=== PATIENT | female | born 1945 | race Caucasian/White ===

== ENCOUNTER 2016-03-18 09:27 | Inpatient (IN) | payer OTHER ==
[~2016-03-18 09:27] MED LIST: BACITRACIN 50,000 UNITS/10 ML SYR IRR ONE; BUPIVACAINE 0.25% 30 ML SDV ONE; BUPIVACAINE/EPI 0.25% 30 ML SDV ONE; CHLORHEXIDINE GLUC HIBICLENS 118 ML BTL TP ONE; DEXAMETHASONE 10 MG/ML VIAL IV ONE; THROMBIN (RECOMBINANT) 5,000 UNIT VIAL TP ONE; ceFAZolin 2 GM/DEXTROSE 100 ML IV ONE
[2016-03-18] MEDS ORDERED: LIDOCAINE 1% 5 ML SDV ONE (10:10)
[2016-03-18] MEDS ORDERED: LR 1,000 ML IV ONE (10:25)
[2016-03-18] MEDS ORDERED: LIDOCAINE 1% 5 ML SDV ID PRN (10:31)
[2016-03-18] MEDS ORDERED: MIDAZOLAM 2 MG/2 ML VIAL ONE (10:57)
[2016-03-18] MEDS ORDERED: DEXAMETHASONE 10 MG/ML VIAL ONE (10:58)
[2016-03-18] MEDS ORDERED: CITRATE DEXTROSE SOLN 500 ML BAG ONE ×2 (11:07→14:22)
[2016-03-18] MEDS ORDERED: DIAZEPAM 5 MG TAB PO PRN (11:10)
[2016-03-18] MEDS ORDERED: DIAZEPAM 10 MG/2 ML SYR IVP PRN (11:10)
[2016-03-18] MEDS ORDERED: ONDANSETRON DISINTEGRATING 4 MG TAB PO PRN (11:10)
[2016-03-18] MEDS ORDERED: OXYCODONE/APAP 5/325 TAB PO PRN (11:10)
[2016-03-18] MEDS ORDERED: HYDROCODONE/APAP 10/325 TAB PO PRN (11:10)
[2016-03-18] MEDS ORDERED: oxyCODONE IR 5 MG TAB PO PRN (11:10)
[2016-03-18] MEDS ORDERED: diphenhydrAMINE 25 MG CAP PO PRN (11:10)
[2016-03-18] MEDS ORDERED: NALOXONE HCL 0.4 MG/ML INJ IVP PRN (11:10)
[2016-03-18] MEDS ORDERED: LACTULOSE 20 GM/30 ML UDCUP PO PRN (11:10)
[2016-03-18] MEDS ORDERED: HYDROmorphONE/DILAUDID 6 MG/30 ML PCA IV PRN (11:10)
[2016-03-18] MEDS ORDERED: BISACODYL 10 MG SUPP PR PRN (11:10)
[2016-03-18] MEDS ORDERED: HYDROmorphONE/DILAUDID 1 MG/ML SYR IVP PRN (11:10)
[2016-03-18] MEDS ORDERED: ONDANSETRON 4 MG/2 ML VIAL IVP PRN (11:10)
[2016-03-18] MEDS ORDERED: PROPOFOL/EMULSION 500 MG/50 ML BOTTLE IV ONE ×2 (11:11→12:46)
[2016-03-18] MEDS ORDERED: CEFAZOLIN 2 GM/DEXTROSE/100 ML BAG IV ONE (11:11)
[2016-03-18] MEDS ORDERED: fentaNYL 100 MCG/2 ML INJ ONE ×3 (11:11→13:30)
[2016-03-18] MEDS ORDERED: ROCURONIUM 50 MG/5 ML VIAL ONE (11:12)
[2016-03-18] MEDS ORDERED: LIDOCAINE 2% 100 MG/5 ML SYR IVP ONE (11:12)
[2016-03-18] MEDS ORDERED: NS W/ 20 KCl/L 1,000 ML IV SCH (11:15)
[2016-03-18] MEDS ORDERED: POTASSIUM Cl (KCl) 100 ML IV ONE (11:30)
[2016-03-18] MEDS ORDERED: ONDANSETRON 4 MG/2 ML VIAL ONE ×2 (12:18→14:32)
[2016-03-18] MEDS ORDERED: DEXAMETHASONE 4 MG/ML VIAL ONE (12:18)
[2016-03-18] MEDS ORDERED: morphINE PF 5 MG/10 ML INJ ONE (13:30)
[2016-03-18] MEDS ORDERED: ceFAZolin 1 GM VIAL ONE (14:11)
[2016-03-18] MEDS ORDERED: SUGAMMADEX SODIUM 200 MG/2 ML VIAL IVP ONE (14:32)
--- NOTE | 2016-03-18 15:39 | POSTOPPROG ---
Post Op Note Date of Operation: 03/18/16 Surgeon: Gurmeet Uriostegui Ambulatory Services Representative: Brody Anesthesiologist: Chiquita Anesthesia: GET(General Endotracheal) Pre-op Diagnosis: lumbar stenosis/spondylolisthesis Post-op Diagnosis: same Indication: low back pain, left leg pain Procedure: L3/4, L4/5 TLIF Findings: DJD/stenosis Inf/Abcess present in the surg proc area at time of surgery?: No EBL: 100-500 (350 ml EBL) Complications: None Drains: George Simmons (AL x 1, lumbar)
--- NOTE | 2016-03-18 15:41 | SOAPPROG ---
SOAP Progress Note Assessment/Plan: Assessment: 70 yo F sp L3/4, L4/5 TLIF Plan: stable LSO brace when out of bed PT/OT AL to thumbprint suction only please call with neuro changes pt seen by DR Pate in pacu 03/18/16 15:40 Subjective: + back pain, no leg pain Objective: somnolent PERRL, no facial droop ELMA x 4 + light touch ICD10 Worksheet Patient Problems: Problems Problem Status Diagnosed Fusion of lumbar spine Acute - ICD10 Problem Qualifiers (1) Fusion of lumbar spine
--- NOTE | 2016-03-18 15:53 | DX ---
Fluoroscopy Provided for Lumbar Spine Surgery March 18, 2016 Indication: Lumbar spine surgery. Technique: 42.6 seconds of fluoroscopy time were utilized. Cumulative dose: 12.55 mGy. Comparison: Lumbar spine series dated February 12, 2016. Findings: A three-level posterior fusion unilateral construct has been placed, and two interspinous f ixer devices are present. Impression: Three-level unilateral posterior lumbar spine fusion.
[2016-03-18] MEDS ORDERED: morphINE PF 5 MG/10 ML INJ IT ONE (16:00)
[2016-03-18] MEDS ORDERED: fentaNYL 100 MCG/2 ML INJ IT ONE (16:00)
[2016-03-18 16:22] LABS: HEMOGLOBIN 7.8 g/dL (12.6-16.3); MEAN CELL HEMOGLOBIN 22.5 pg (27.9-34.1); MEAN CELL HEMOGLOBIN CONCENTR. 31.2 g/dL (32.4-36.7); MEAN CELL VOLUME 72.3 fL (81.5-99.8); RED BLOOD CELL COUNT 3.46 10^6/uL (4.18-5.33); RED CELL DISTRIBUTION WIDTH 16.8 % (11.5-15.2)
[2016-03-18 16:35] LABS: ANION GAP 7 mEq/L (8-16); CALCIUM 8.1 mg/dL (8.5-10.4); CARBON DIOXIDE 26 mEq/l (22-31); CHLORIDE 103 mEq/L (97-110); CREATININE 0.5 mg/dL (0.6-1.0); GLOMERULAR FILTRATION RATE > 60; GLUCOSE 149 mg/dL (70-100); POTASSIUM 4.2 mEq/L (3.5-5.2); SODIUM 136 mEq/L (134-144)
[2016-03-18] MEDS: POLYETHYLENE GLYCOL 3350 17 GM PKT PO SCH ×2 (17:00→20:30)
--- NOTE | 2016-03-18 17:39 | GOP ---
[f rep st] OPERATIVE REPORT DATE OF OPERATION: 03/18/2016 SURGEON: Gurmeet Uriostegui MD TAKER DOWN: [facility]. ANESTHESIA: General endotracheal. PREOPERATIVE DIAGNOSIS: Critical spinal stenosis at L3-4 and L4-5 with spondylolisthesis and instability. Intractable back pain and left greater than right lower extremity radicular pain. Intractable neurogenic claudication. High risk surgical candidate given age, comorbidities, and required surgical intervention. POSTOPERATIVE DIAGNOSIS: Critical spinal stenosis at L3-4 and L4-5 with spondylolisthesis and instability. Intractable back pain and left greater than right lower extremity radicular pain. Intractable neurogenic claudication. High risk surgical candidate given age, comorbidities, and required surgical intervention. PROCEDURE PERFORMED: Mini open exposure for left-sided L3-4 and L4-5 far lateral transfacet transpedicular decompression with L3 through 5 posterior segmental (pedicle screw and Axle device) fixation and posterolateral fusion with local autograft and bone morphogenic protein. Use of intraoperative microscopy fluoroscopy and computer volumetric stereotactic navigation with intraoperative neurophysiologic testing. Injection of intrathecal narcotic analgesics and subcutaneous and intramuscular local anesthesia for postoperative pain control. FINDINGS: ESTIMATED BLOOD LOSS: 500 cc. COMPLICATIONS: None. INDICATIONS FOR PROCEDURE: The patient is a 70-year-old woman with intractable low back pain and left greater than right lower extremity radicular and neurogenic claudication symptoms. She has critical spinal stenosis and spondylolisthesis with instability at the L3-4 and L4-5 levels and has failed extensive conservative care. She presents today for surgical decompression and stabilization through a mini open approach. DESCRIPTION OF PROCEDURE: After informed consent was obtained, the patient was taken to the operating room and placed in the prone position on the George table. The lumbosacral area was prepped and draped in a sterile fashion. After fluoroscopic localization of the correct levels, the subcutaneous and intramuscular tissues were infiltrated with local anesthesia. A midline linear incision was then created over the L3 through 5 spinous processes. This was carried down to the fascial layer, which was incised using the monopolar electrocautery, creating a subperiosteal plane along the spinous processes and laminae bilaterally. Intraoperative fluoroscopy was again utilized to verify the correct levels. Following this, the dissection was carried out over the facet joints, and the microscope was brought in. A left- sided far lateral transfacet transpedicular decompression was then performed at the L3-4 and L4-5 levels with complete unroofing of the facet joints and neural foramina at L3, L4, and L5. In addition, an aggressive central canal decompression was performed with angling the microscope across the midline with a right-sided decompression as well, but preserving the lamina and facet joints as much as possible by undercutting from the left side. Following an excellent decompression at both levels, the [employer] neuronavigational system was brought in, and using computer volumetric stereotactic navigation, pedicle screws, were placed on the left at the L3, L4, and L5 levels. Each individual screw was tested neurophysiologically with monopolar electrostimulation and interpretation of the potentials by the surgeon. A bebo was then placed and secured first at L4-5, then at L3-4 under distraction, during which time complete diskectomies were performed with preparation of the endplates and placement of 2 structural PEEK interbody spacers, local autograft, and bone morphogenic protein at each level for L3-4 and L4-5 posterior/transforaminal lumbar interbody fusions. The screw and bebo system was then placed in a slight amount of compression in order to facilitate bony union and to minimize the potential for posterior graft migration. The screw and bebo system was then placed in a slight amount of compression in order to facilitate bony union and to minimize the potential for posterior graft migration. Axle devices were then placed at the inner spinous process levels in order to avoid pedicle screws on the right side in order to maximize the bony surface area for the posterolateral fusion and minimize the potential risks associated with the pedicle screws on that side. Following this, the wound was copiously irrigated with antibiotic irrigation, and meticulous hemostasis was achieved. The remaining laminae and facet joints on the right side were then extensively decorticated, and the residual local autograft along with bone morphogenic protein and some morselized allograft was placed out laterally for a posterolateral fusion from L3 through L5. Duramorph 200 mcg, along with 50 mcg of fentanyl were then injected intrathecally at the L2-3 level. The subcutaneous and intramuscular tissues were re-infiltrated with local anesthesia. A drain was placed, and the wound was closed in a layered fashion using interrupted Vicryl sutures followed by Steri-Strips on the skin. DISPOSITION: The patient was extubated and transferred to the recovery room in stable condition. /[id number]/MODL MTDD
[2016-03-18] MEDS: CREON 24 CAP PO SCH ×2 (18:10→19:15)
[2016-03-18] MEDS: morphINE SR 15 MG TAB PO SCH (20:28)
[2016-03-18] MEDS: SENNOSIDES/DOCUSATE SODIUM TAB PO SCH (20:29)
[2016-03-18] MEDS: FAMOTIDINE 20 MG TAB PO SCH (20:29)
[2016-03-18] MEDS: METOPROLOL TARTRATE 25 MG TAB PO SCH (20:29)
[2016-03-18] MEDS ORDERED: FAMOTIDINE 20 MG/NACL 50 ML IV SCH (21:00)
[2016-03-18] MEDS ORDERED: morphINE SR 15 MG TAB PO SCH (21:00)
[2016-03-19 05:01] LABS: % IMMATURE GRANULYOCYTES 0.5 % (0.0-1.1); ABSOLUTE IMMATURE GRANULOCYTES 0.06 10^3/uL (0.00-0.10); ADD DIFF? NO; ADD MORPH? YES; ADD SCAN? NO; ATYPICAL LYMPHOCYTE FLAG 20 (0-99); FRAGMENT RBC FLAG 20 (0-99); HEMATOCRIT 21.2 % (38.0-47.0); LEFT SHIFT FLG 10 (0-99); LIPEMIA HEMOLYSIS FLAG 80 (0-99); MEAN CELL HEMOGLOBIN CONCENTR. 31.1 g/dL (32.4-36.7); MEAN CELL VOLUME 73.9 fL (81.5-99.8); MEAN PLATELET VOLUME 10.8 fL (8.7-11.7); PLATELET CLUMPS FLAG 20 (0-99); PLATELET COUNT 209 10^3/uL (150-400); RED BLOOD CELL COUNT 2.87 10^6/uL (4.18-5.33); RED CELL DISTRIBUTION WIDTH 16.7 % (11.5-15.2)
[2016-03-19 05:12] LABS: HEMOGLOBIN 6.6 g/dL (12.6-16.3)
[2016-03-19 05:38] LABS: ANION GAP 6 mEq/L (8-16); CARBON DIOXIDE 26 mEq/l (22-31); CHLORIDE 104 mEq/L (97-110); CREATININE 0.5 mg/dL (0.6-1.0); GLOMERULAR FILTRATION RATE > 60; GLUCOSE 146 mg/dL (70-100); POTASSIUM 4.4 mEq/L (3.5-5.2); SODIUM 136 mEq/L (134-144)
[2016-03-19 06:23] LABS: ACANTHOCYTES 1+; ELLIPTOCYTES 1+; HYPOCHROMIA 1+; PLATELET ESTIMATE ADEQUATE (ADEQ); POLYCHROMASIA 1+
[2016-03-19 06:24] LABS: MICROCYTES 1+
[2016-03-19] MEDS: FAMOTIDINE 20 MG TAB PO SCH ×2 (08:04→20:28)
[2016-03-19] MEDS: morphINE SR 15 MG TAB PO SCH ×2 (08:04→20:29)
[2016-03-19] MEDS: PANTOPRAZOLE SODIUM 40 MG TAB PO SCH (08:04)
[2016-03-19] MEDS: CHOLECALCIFEROL VIT D3 2,000 UNITS TAB/CAP PO SCH (08:04)
[2016-03-19] MEDS: SENNOSIDES/DOCUSATE SODIUM TAB PO SCH ×2 (08:04→20:28)
[2016-03-19] MEDS: CREON 24 CAP PO SCH ×3 (08:07→18:22)
[2016-03-19] MEDS: POLYETHYLENE GLYCOL 3350 17 GM PKT PO SCH ×3 (08:11→20:27)
--- NOTE | 2016-03-19 09:10 | NEUSURGPN ---
Date of Surgery: 03/18/16 Post Op Day: 1 Assessment/Plan: Awake, alert. Pain well controlled H/H low. Dr. Pate aware and we will transfuse 3 units PRBC today. Hold morning dose of Metoprolol due to low BP. Advance activity with PT/OT. LSO when out of bed Continue AL drain Rehab planning Needs lumbar xrays today. Will consult hospitalist to follow along. Subjective: awake, comfortable. "I have no pain" denies numbness or tingling. Objective: Neuro: LICONA, Sens +LT Dressing CDI Neurosurgery Physical Exam - Vitals, I&O, Labs I and O 03/18/16 03/19/16 03/20/16 05:59 05:59 05:59 Intake Total 4020 Output Total 703 Balance 3317 Weight 39.916 kg Intake: Oral (ml) 20 IV Intake (ml) 3000 IV Infused (ml) 1000 ceFAZolin 1 GM/DEXTROSE 100 50 ml @ 200 mls/hr IV Q8H [facility] Rx#:[id number] NS W/ 20 KCl/L 1,000 ml @ 900 75 mls/hr IV CONT [facility] Rx #:[id number] Output: Urine (ml) 250 Bedside Commode 250 Estimated Blood Loss (ml) 350 Wound Drainage (ml) 103 Back George Simmons 103 Other: Number of Voids Bedside Commode 1 Vital Signs Temp Pulse Resp BP Pulse Ox 36.6 C 63 16 113/66 100 03/19/16 04:25 03/19/16 04:25 03/19/16 04:25 03/19/16 04:25 03/19/16 04:25 Laboratory Results 03/19/16 04:20 03/19/16 04:20 ICD10 Worksheet Patient Problems: Problems Problem Status Diagnosed Fusion of lumbar spine Acute
[2016-03-19] MEDS: METOPROLOL TARTRATE 25 MG TAB PO SCH ×2 (10:54→20:29)
[2016-03-19 16:48] LABS: TOTAL IRON BINDING CAPACITY 290 ug/dL (260-490)
[2016-03-19 17:35] LABS: IRON < 10.1 mcg/dL (37-170)
[2016-03-19 17:36] LABS: % SATURATION 4 % (20-55)
[2016-03-19 19:01] LABS: % IMMATURE GRANULYOCYTES 0.4 % (0.0-1.1); ABSOLUTE IMMATURE GRANULOCYTES 0.04 10^3/uL (0.00-0.10); ADD DIFF? NO; ADD MORPH? NO; ADD SCAN? NO; ATYPICAL LYMPHOCYTE FLAG 10 (0-99); FRAGMENT RBC FLAG 20 (0-99); HEMATOCRIT 30.5 % (38.0-47.0); HEMOGLOBIN 9.9 g/dL (12.6-16.3); LEFT SHIFT FLG 0 (0-99); LIPEMIA HEMOLYSIS FLAG 80 (0-99); MEAN CELL HEMOGLOBIN CONCENTR. 32.5 g/dL (32.4-36.7); MEAN PLATELET VOLUME 9.7 fL (8.7-11.7); PLATELET CLUMPS FLAG 10 (0-99); PLATELET COUNT 212 10^3/uL (150-400); RED BLOOD CELL COUNT 3.96 10^6/uL (4.18-5.33); RED CELL DISTRIBUTION WIDTH 17.3 % (11.5-15.2)
[2016-03-19] MEDS: METHOCARBAMOL 750 MG TAB PO PRN (20:29)
--- NOTE | 2016-03-19 20:33 | GCON ---
[f rep ] CONSULTATION [facility] MEDICINE CONSULTATION. DATE OF CONSULTATION: 03/19/2016 REASON FOR CONSULTATION: I was asked by Dr. Uriostegui to see the patient in regard to her medica l problems, including anemia and history of ampullary cancer. HISTORY OF PRESENT ILLNESS: This is a 70-year-old female, who is now postoperative day #1 status pos t status post L3-4, L4-5 TLIF for degenerative disease and spinal stenosis. She is recovering well, has no chest pain, shortness of breath. She does have some ongoing left lower extremity numbness and weakness which she believes is actually improving after the surgery. She is being transfused 2 units of packed red blood cells today. Her hemoglobin postoperatively was 7.8, down to 6.6 today. I note that on March 05, through a review of her old records, she had h emoglobin of 11.7. This had decreased to 10.7 about a week after that. She denies any melena, hemat ochezia. No other sources of blood loss are noted. She notes that she has been eating poorly. She has never been told that she is anemic before. Her history is most notable for having what sounds like cholangiocarcinoma status post Whipple proced ure on October 05 of this year. She did not receive any subsequent chemotherapy. She notes that she had some liver involvement, as well as lymph node involvement, which were resected at the time of . She tells me that a subsequent PET scan showed no evidence of ongoing disease. She follows [facility] Dr. Clark in [place], as well as an oncologist at [facility]. The Whipple was done at [facility]. PAST MEDICAL/SURGICAL HISTORY: 1. Cholangiocarcinoma status post Whipple. 2. 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 3. History of paroxysmal atrial fibrillation, not anticoagulated, currently on metoprolol. 4. History of a hysterectomy, tonsillectomy and orthopedic procedures in the past. MEDICATIONS: Please see medication reconciliation. FAMILY HISTORY: Her father and brother both smoke significantly. Both in their 60s of what tram nds like metastatic cancer. Her mother is 96 years old and healthy. SOCIAL HISTORY: She lives in [place]. She does not drink or smoke. 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 She swears like a silk opener. REVIEW OF SYSTEMS: A 10-point review of systems is conducted and is negative, except per HPI. PHYSICAL EXAM: VITAL SIGNS: Blood pressure 104/65, heart rate 71, respiration rate 16, saturating 9 8% on 2 L, temperature is 36.7. GENERAL: The patient is a very pleasant female, fully oriented, in no acute distress. HEENT: Pupils equal, round, reactive. Head is normocephalic, atraumatic. CARDI OVASCULAR: Exam shows a regular rate and rhythm. She has a split S2. She has no murmurs, rubs or g allops. PULMONARY: Exam shows lungs clear to auscultation bilaterally. She is in no respiratory di stress. ABDOMEN: Soft. She is mildly distended. She has no real tenderness to palpation. Normal bowel sounds. No hepatosplenomegaly appreciated. SKIN: Exam shows no rash. : Exam shows no Fol ey. NEUROLOGIC: Exam shows her to be alert and oriented x3. She has a mild decrease in left foot d orsiflexion. She has mild numbness in her left foot. Otherwise, neurologic exam is normal. PSYCHIA TRIC: Exam shows a normal mood and affect. LABS: Basic metabolic panel is normal. Her hemoglobin was 7.8 yesterday, down to 6.6 today, her [facility] te cell count is 11.7, her MCV is 73.9, platelets are 209. DATA: 1. I reviewed her chart. 2. I reviewed her operative note. 3. I reviewed her outside records. 4. I reviewed fluoroscopy which shows a three-level, unilateral, posterior lumbar spinal fusion. IMPRESSION AND PLAN: 1. Anemia, suspect ajylp-va-dreschn: It appears as though her hemoglobin had been dropping over the past few weeks prior to surgery. I have ordered iron studies given her low MCV. Also, will check r eticulocyte count, as well as a B12. She is being transfused right now. Will recheck a hemoglobin i n the morning. 2. Cholangiocarcinoma status post Whipple: She is currently taking Creon for presumed pancreatic in sufficiency. Will continue this for now. She will follow up with Dr. Clark, as well as her oncolog ist at the [facility]. 3. History of paroxysmal atrial fibrillation: She is currently on metoprolol, has had no recurrence s since then. Will continue this for now, although it is being held in the setting of hypotension. I do not think she needs any further evaluation for this at this point. 4. Mild leukocytosis: Suspect stress in the setting of her surgery. Rechecking a CBC tomorrow. 5. Will check fecal occult blood test while she is here if she has a bowel movement to further evalu ate her anemia. 6. Spinal fusion: Neurologic deficits have improved since the surgery. We will defer care to Neuro surgery. It looks as though they would like to start Lovenox on the 21 of March. Thank you for allowing Hospital Medicine to participate in the care your patient. We will continue t o follow with you this. /[id number]/MODL
[2016-03-20] MEDS: ACETAMINOPHEN 325 MG TAB PO PRN ×2 (02:13→20:04)
[2016-03-20 05:40] LABS: ALBUMIN 2.4 g/dL (3.5-5.0); BILIRUBIN,TOTAL 0.5 mg/dL (0.1-1.4); BILIRUBIN-CONJUGATED 0.2 mg/dL (0.0-0.5); BILIRUBIN-UNCONJUGATED 0.3 mg/dL (0.0-1.1); TOTAL PROTEIN 4.9 g/dL (6.3-8.2)
[2016-03-20] MEDS: morphINE SR 15 MG TAB PO SCH ×2 (08:21→20:39)
[2016-03-20] MEDS: FAMOTIDINE 20 MG TAB PO SCH ×2 (08:21→20:04)
[2016-03-20] MEDS: PANTOPRAZOLE SODIUM 40 MG TAB PO SCH (08:22)
[2016-03-20] MEDS: CHOLECALCIFEROL VIT D3 2,000 UNITS TAB/CAP PO SCH (08:22)
[2016-03-20] MEDS: METOPROLOL TARTRATE 25 MG TAB PO SCH ×2 (08:22→20:03)
[2016-03-20] MEDS: CREON 24 CAP PO SCH ×3 (08:23→18:32)
--- NOTE | 2016-03-20 08:24 | NEUSURGPN ---
Date of Surgery: 03/18/16 Post Op Day: 2 Assessment/Plan: Assessment: 70 yo female that is s/p TLIF L3-L5 POD #2 Plan: -awake, alert. Pain well controlled with Tylenol and MS Contin -H/H low. Dr. Pate aware and we transfused [address] Pate -IM on board to help with medical management of BP, medical issues -Advance activity with PT/OT. LSO when out of bed-brace fitting well -Continue AL drain -Rehab planning with potential dc Tuesday at the earliest -Needs lumbar xrays today-pending -call with any questions or concerns -d/w Dr Pate Subjective: Awake and alert. Pt with back pain that is expected. No n/v/d. No lou/neck/ chest complaints. Objective: AAO x 3, PERRLA/EOMI no droop CN 2-12 grossly intact +lt touch LICONA, Sens +LT Dressing CDI AL in place Neuro Check Frequency: per routine Urinary Catheter in Place: No - Physician Discussed Patient with DrNikko: [facility] Physical Exam - Vitals, I&O, Labs I and O 03/19/16 03/20/16 03/21/16 05:59 05:59 05:59 Intake Total 4020 700 Output Total 703 400 240 Balance 3317 300 -240 Weight 39.916 kg Intake: Oral (ml) 20 700 IV Intake (ml) 3000 IV Infused (ml) 1000 ceFAZolin 1 GM/DEXTROSE 100 50 ml @ 200 mls/hr IV Q8H [facility] Rx#:[id number] NS W/ 20 KCl/L 1,000 ml @ 900 75 mls/hr IV CONT [facility] Rx #:[id number] Output: Urine (ml) 250 300 200 Bedside Commode 250 Toilet 300 200 Estimated Blood Loss (ml) 350 Wound Drainage (ml) 103 100 40 Back George Simmons 103 100 40 Other: Number of Voids Bedside Commode 1 Vital Signs Temp Pulse Resp BP Pulse Ox 37.1 C 76 16 133/73 H 97 03/20/16 03:22 03/20/16 03:22 03/20/16 03:22 03/20/16 03:22 03/20/16 03:22 Laboratory Results 03/19/16 18:55 03/19/16 04:20 ICD10 Worksheet Patient Problems: Problems Problem Status Diagnosed Fusion of lumbar spine Acute
[2016-03-20] MEDS: POLYETHYLENE GLYCOL 3350 17 GM PKT PO SCH ×3 (08:27→19:27)
[2016-03-20] MEDS: SENNOSIDES/DOCUSATE SODIUM TAB PO SCH ×2 (08:27→20:03)
--- NOTE | 2016-03-20 09:53 | HOSPPROG ---
Hospitalist Progress Note Assessment/Plan: ASSESSMENT/PLAN: # anemia - chronic component in the setting of acute blood loss from surgery: FOBT pending - IV iron while here, p.o. iron on discharge # status post lumbar fusion, POD#2 # hypertension, reasonable control, continue metoprolol # history of cholangiocarcinoma status post Whipple 5 months ago - still having ongoing issues with GI transit - continue Creon for now # FCFT # dvt ppx per nsg SUBJECTIVE: Had some abdominal cramping last night as well as abdominal pain; still passing flatus; no bowel movement OBJECTIVE: Vitals reviewed Comfortable, no acute distress Regular rate and rhythm, no murmurs rubs or gallops No respiratory distress, lungs clear to auscultation bilaterally; no wheezes rales or rhonchi Abdomen with normal bowel sounds, somewhat firm, not terribly distended, moderately tender to palpation LABORATORY DATA: Iron very low; hemoglobin better IMAGING: Nothing new MICROBIOLOGY: None Objective: Vital Signs Temp Pulse Resp BP Pulse Ox 36.8 C 78 16 141/87 H 96 03/20/16 08:00 03/20/16 08:22 03/20/16 08:00 03/20/16 08:22 03/20/16 08:00 Laboratory Results 03/19/16 18:55 03/19/16 04:20 03/19/16 03/20/16 03/21/16 05:59 05:59 05:59 Intake Total 4020 700 Output Total 703 400 240 Balance 3317 300 -240 ICD10 Worksheet Patient Problems: Problems Problem Status Diagnosed Fusion of lumbar spine Acute
[2016-03-20] MEDS: SODIUM FERRIC GLUCONAT/SUCROSE 125 MG in NS 100 ML IV SCH (10:49)
--- NOTE | 2016-03-20 16:20 | DX ---
Lumbar Spine, Two Views March 20, 2016 Indication: New lumbar spine fusion. Comparison: Lumbar spine series dated February 12, 2016. Technique: Upright AP and lateral views. Findings: A new left unilateral posterior fusion construct extends from L3 to L5. The construct consi sts of a vertical bebo, pedicle screws at L3, L4, and L5, radiopaque bone graft and markers in the L3- L4 and L4-L5 interbody spaces, and interspinous fixator devices at the L3-L4 and L4-L5 levels. The de gree of spondylolisthesis has significantly improved. The L3 and L4 vertebral bodies are now anatomic ally aligned. L4 is now anterolisthesed 4 mm on L5 (previously 8 mm). No perihardware fracture or billie ency. Mild levocurvature is improved. A surgical drain is present posteriorly. A brace obscures fine bony detail on the AP view. Impression: New well-seated left unilateral posterior fusion construct extending from L3 to L5.
[2016-03-20] MEDS: MAGNESIUM HYDROXIDE 30 ML UDCUP PO PRN (17:16)
[2016-03-20] MEDS: METHOCARBAMOL 750 MG TAB PO PRN (20:03)
[2016-03-21 04:48] LABS: % IMMATURE GRANULYOCYTES 0.3 % (0.0-1.1); ABSOLUTE IMMATURE GRANULOCYTES 0.03 10^3/uL (0.00-0.10); ADD DIFF? NO; ADD MORPH? NO; ADD SCAN? NO; ATYPICAL LYMPHOCYTE FLAG 20 (0-99); FRAGMENT RBC FLAG 20 (0-99); HEMATOCRIT 26.2 % (38.0-47.0); HEMOGLOBIN 8.5 g/dL (12.6-16.3); LEFT SHIFT FLG 0 (0-99); LIPEMIA HEMOLYSIS FLAG 80 (0-99); MEAN CELL HEMOGLOBIN 25.1 pg (27.9-34.1); MEAN CELL HEMOGLOBIN CONCENTR. 32.4 g/dL (32.4-36.7); MEAN CELL VOLUME 77.5 fL (81.5-99.8); MEAN PLATELET VOLUME 10.3 fL (8.7-11.7); PLATELET CLUMPS FLAG 0 (0-99); PLATELET COUNT 160 10^3/uL (150-400); RED BLOOD CELL COUNT 3.38 10^6/uL (4.18-5.33); RED CELL DISTRIBUTION WIDTH 17.9 % (11.5-15.2)
[2016-03-21] MEDS: ACETAMINOPHEN 325 MG TAB PO PRN ×4 (05:24→23:44)
[2016-03-21] MEDS: METHOCARBAMOL 750 MG TAB PO PRN ×4 (05:24→23:44)
[2016-03-21] MEDS: SODIUM FERRIC GLUCONAT/SUCROSE 125 MG in NS 100 ML IV SCH (08:04)
[2016-03-21] MEDS: METOPROLOL TARTRATE 25 MG TAB PO SCH ×2 (08:05→21:11)
[2016-03-21] MEDS: PANTOPRAZOLE SODIUM 40 MG TAB PO SCH (08:05)
[2016-03-21] MEDS: CREON 24 CAP PO SCH ×3 (08:05→17:28)
[2016-03-21] MEDS: FAMOTIDINE 20 MG TAB PO SCH ×2 (08:05→21:10)
[2016-03-21] MEDS: SENNOSIDES/DOCUSATE SODIUM TAB PO SCH ×2 (08:05→21:10)
[2016-03-21] MEDS: ENOXAPARIN 40 MG/0.4 ML SYR SC SCH (08:05)
[2016-03-21] MEDS: CHOLECALCIFEROL VIT D3 2,000 UNITS TAB/CAP PO SCH (08:05)
[2016-03-21] MEDS: morphINE SR 15 MG TAB PO SCH ×2 (08:10→21:11)
[2016-03-21] MEDS: POLYETHYLENE GLYCOL 3350 17 GM PKT PO SCH ×3 (08:10→21:11)
--- NOTE | 2016-03-21 09:05 | NEUSURGPN ---
Date of Surgery: 03/18/16 Post Op Day: 3 Assessment/Plan: Assessment: 70 yo female that is s/p TLIF L3-L5 POD #3 Plan: -awake, alert. Pain well controlled with Tylenol and Robaxin only -H/H low but stable. Dr. Pate aware and we transfused 3 units. IM to start IV iron replacement -IM on board to help with medical management of BP/medical issues-appreciate their care and input -Advance activity with PT/OT. LSO when out of bed-brace fitting well-no skin issues -Continue AL drain til tomorrow per Dr Pate -Rehab planning with potential dc Tuesday at the earliest -Post op xrays look good-reviewed with Dr Pate -call with any questions or concerns -d/w Dr Pate Subjective: Doing well this am. No new complaints or concerns. No f/c/n/v/d. No lou/neck/ chest/abd or gu complaints. Objective: AAO x 3, PERRLA/EOMI no droop CN 2-12 grossly intact +lt touch LICONA, Sens +LT Dressing CDI AL in place Neuro Check Frequency: per routine Urinary Catheter in Place: No - Physician Discussed Patient with : [facility] Physical Exam - Vitals, I&O, Labs I and O 03/20/16 03/21/16 03/22/16 05:59 05:59 05:59 Intake Total 700 1000 Output Total 400 1800 Balance 300 -800 Intake: Oral (ml) 700 1000 Output: Urine (ml) 300 1650 Toilet 300 1650 Wound Drainage (ml) 100 150 Back George Simmons 100 150 Other: Number of Voids Toilet 1 Number of Stools Toilet 1 Vital Signs Temp Pulse Resp BP Pulse Ox 36.7 C 66 16 132/71 H 93 03/21/16 07:42 03/21/16 08:05 03/21/16 07:42 03/21/16 08:05 03/21/16 07:42 Laboratory Results 03/21/16 04:36 03/19/16 04:20 ICD10 Worksheet Patient Problems: Problems Problem Status Diagnosed Fusion of lumbar spine Acute
--- NOTE | 2016-03-21 09:22 | HOSPPROG ---
Hospitalist Progress Note Assessment/Plan: ASSESSMENT/PLAN: # anemia, Fe deficient - chronic component in the setting of acute blood loss from surgery: FOBT neg x 1 - IV iron while here, p.o. iron on discharge - recheck tomorrow - needs outpatient f/u to consider EGD/colonoscopy # status post lumbar fusion, POD#3 # hypertension, reasonable control, continue metoprolol # history of cholangiocarcinoma status post Whipple 5 months ago - still having ongoing issues with GI transit - may contribute to poor Fe absorption - continue Creon for now # FCFT # dvt ppx per nsg - starting today SUBJECTIVE: Abdominal pain much better today OBJECTIVE: Vitals reviewed Comfortable, no acute distress Regular rate and rhythm, no murmurs rubs or gallops No respiratory distress, lungs clear to auscultation bilaterally; no wheezes rales or rhonchi Abdomen with normal bowel sounds, somewhat firm, not terribly distended, moderately tender to palpation LABORATORY DATA: Hemoglobin slightly lower IMAGING: Nothing new MICROBIOLOGY: None Objective: Vital Signs Temp Pulse Resp BP Pulse Ox 36.7 C 66 16 132/71 H 93 03/21/16 07:42 03/21/16 08:05 03/21/16 07:42 03/21/16 08:05 03/21/16 07:42 Laboratory Results 03/21/16 04:36 03/19/16 04:20 03/20/16 03/21/16 03/22/16 05:59 05:59 05:59 Intake Total 700 1000 Output Total 400 1800 Balance 300 -800 ICD10 Worksheet Patient Problems: Problems Problem Status Diagnosed Fusion of lumbar spine Acute
[2016-03-21] MEDS: MAGNESIUM HYDROXIDE 30 ML UDCUP PO PRN (17:57)
[2016-03-22 05:16] LABS: % IMMATURE GRANULYOCYTES 0.6 % (0.0-1.1); ABSOLUTE IMMATURE GRANULOCYTES 0.05 10^3/uL (0.00-0.10); ADD DIFF? NO; ADD MORPH? NO; ADD SCAN? NO; ATYPICAL LYMPHOCYTE FLAG 10 (0-99); FRAGMENT RBC FLAG 20 (0-99); HEMATOCRIT 28.5 % (38.0-47.0); HEMOGLOBIN 9.2 g/dL (12.6-16.3); LEFT SHIFT FLG 0 (0-99); LIPEMIA HEMOLYSIS FLAG 80 (0-99); MEAN CELL HEMOGLOBIN 24.9 pg (27.9-34.1); MEAN CELL HEMOGLOBIN CONCENTR. 32.3 g/dL (32.4-36.7); MEAN PLATELET VOLUME 10.4 fL (8.7-11.7); PLATELET CLUMPS FLAG 10 (0-99); PLATELET COUNT 227 10^3/uL (150-400); RED CELL DISTRIBUTION WIDTH 18.5 % (11.5-15.2)
[2016-03-22] MEDS: ACETAMINOPHEN 325 MG TAB PO PRN ×3 (06:13→16:11)
[2016-03-22] MEDS: METHOCARBAMOL 750 MG TAB PO PRN ×2 (06:13→13:00)
[2016-03-22 07:40] VITALS: TEMP 98.1
--- NOTE | 2016-03-22 08:13 | NEUSURGPN ---
Date of Surgery: 03/18/16 Post Op Day: 4 Assessment/Plan: Assessment: 70 yo female that is s/p TLIF L3-L5 POD #4 Plan: -awake, alert. Pain well controlled with Tylenol and Robaxin only -H/H low slightly improved. Dr. Pate aware and we transfused PRBCs. IM to start IV iron replacement -IM on board to help with medical management of BP/medical issues-appreciate their care and input -Advance activity with PT/OT. LSO when out of bed-brace fitting well-no skin issues -AL removed today by myself and dressing changed-ok per Dr Pate -Rehab planning with potential dc today at the earliest -Post op xrays look good-reviewed with Dr Pate -call with any questions or concerns -d/w Dr Pate Subjective: Awake and alert, NAD. Pt eating/drinking and voiding. No f/c/n/v/d. Objective: AAO x 3, PERRLA/EOMI no droop CN 2-12 grossly intact +lt touch LICONA, Sens +LT Dressing CDI AL intact by myself Neuro Check Frequency: per routine Urinary Catheter in Place: No - Physician Discussed Patient with : [facility] Physical Exam - Vitals, I&O, Labs I and O 03/21/16 03/22/16 03/23/16 05:59 05:59 05:59 Intake Total 1000 2090 Output Total 1800 2430 200 Balance -800 -340 -200 Intake: Oral (ml) 1000 1660 IV Infused (ml) 430 Sodium Ferric Gluconat/ 430 Sucrose 125 mg In Ns 100 ml @ 110 mls/hr IV DAILY [facility] Rx#:[id number] Output: Urine (ml) 1650 2350 200 Bedside Commode 650 Toilet 1650 1700 200 Wound Drainage (ml) 150 80 Back George Simmons 150 80 Other: Number of Voids Toilet 1 3 1 Number of Stools Toilet 1 Vital Signs Temp Pulse Resp BP Pulse Ox 36.7 C 82 17 177/96 H 95 03/22/16 07:39 03/22/16 07:39 03/22/16 07:39 03/22/16 07:39 03/22/16 07:39 Laboratory Results 03/22/16 05:00 03/19/16 04:20 ICD10 Worksheet Patient Problems: Problems Problem Status Diagnosed Fusion of lumbar spine Acute
[2016-03-22] MEDS: CREON 24 CAP PO SCH ×2 (09:53→12:59)
[2016-03-22] MEDS: SENNOSIDES/DOCUSATE SODIUM TAB PO SCH (09:54)
[2016-03-22] MEDS: PANTOPRAZOLE SODIUM 40 MG TAB PO SCH (09:55)
[2016-03-22] MEDS: CHOLECALCIFEROL VIT D3 2,000 UNITS TAB/CAP PO SCH (09:55)
[2016-03-22] MEDS: METOPROLOL TARTRATE 25 MG TAB PO SCH (09:55)
[2016-03-22] MEDS: POLYETHYLENE GLYCOL 3350 17 GM PKT PO SCH ×2 (09:55→15:44)
[2016-03-22] MEDS: morphINE SR 15 MG TAB PO SCH (09:55)
[2016-03-22] MEDS: ENOXAPARIN 40 MG/0.4 ML SYR SC SCH (09:55)
[2016-03-22] MEDS: FAMOTIDINE 20 MG TAB PO SCH (09:55)
[2016-03-22] MEDS: SODIUM FERRIC GLUCONAT/SUCROSE 125 MG in NS 100 ML IV SCH (10:59)
[2016-03-22 13:05] VITALS: BP 170/92
--- NOTE | 2016-03-22 15:27 | HOSPPROG ---
Hospitalist Progress Note Assessment/Plan: #Iron def anemia -IV iron here and discharged on PO #Benign HTN -mildly elevated today. She was very anxious about abdomen #Abd distension -this has been ongoing since her Whipple. Abd soft, min distension on exam. Having BMs -I advised her to FU with her surgeon at [facility]; she has appt in May or she can call to get in sooner #s/p TLIF L3-5 -brace when out of bed #h/o cholangiocarcinoma -s/p Whipple. FU with [facility] team Please call if any questions. Thank you Subjective: she is very concerned about distension in her abd since her whipple. Wants something to be done Objective: Vital Signs Temp Pulse Resp BP Pulse Ox 36.7 C 80 17 170/92 H 95 03/22/16 07:39 03/22/16 12:45 03/22/16 07:39 03/22/16 12:45 03/22/16 07:39 Laboratory Results 03/22/16 05:00 03/19/16 04:20 03/21/16 03/22/16 03/23/16 05:59 05:59 05:59 Intake Total 1000 2090 450 Output Total 1800 2430 700 Balance -800 -340 -250 - Physical Exam Constitutional: other (anxious) Eyes: PERRL Ears, Nose, Mouth, Throat: moist mucous membranes, hearing normal Cardiovascular: regular rate and rhythym, no murmur, rub, or gallop Respiratory: no respiratory distress, no rales or rhonchi Gastrointestinal: normoactive bowel sounds, soft, non-tender abdomen, distension (mild distension) Genitourinary: no bladder fullness Skin: warm Musculoskeletal: full muscle strength Neurologic: AAOx3 Psychiatric: anxious ICD10 Worksheet Patient Problems: Problems Problem Status Diagnosed Fusion of lumbar spine Acute
--- NOTE | 2016-03-22 15:52 | PDIAF ---
- Diagnosis Diagnosis: s/p L3/4 and L4/5 TLIF Code Status: Full Code - Medication Management Discharge Medications: Medications to Continue on Transfer Cholecalciferol Vit D3 [Vitamin D3 2000 units tab (OTC)] 2,000 units PO DAILY [Last Taken 03/03/16] Herbals/Supplements -Info Only 1 ea PO DAILY 03/04/16 [Last Taken 03/04/16] Lipase/Protease/Amylase [Creon 24 (*)] 2 cap PO TIDMEAL 03/04/16 [Last Taken 06/28 20:00] Metoprolol Tartrate [Lopressor 25 mg (*)] 25 mg PO BID 03/04/16 [Last Taken 07/28 06:30] Pantoprazole Sodium [Protonix 40mg (*)] 40 mg PO DAILY 03/04/16 [Last Taken 06/28 08:00] Acetaminophen [Tylenol 325mg (*)] 325 - 650 mg PO Q4HRS PRN #0 tab 03/22/16 [ Last Taken Unknown] Enoxaparin [Lovenox 40 MG (*)] 40 mg SC DAILY #7 syr 03/22/16 [Last Taken Unknown] Ferrous Sulfate 325 mg PO BID #60 tablet 03/22/16 [Last Taken Unknown] Methocarbamol [Robaxin 750 mg (*)] 750 mg PO QID PRN #60 tab 03/22/16 [Last Taken Unknown] Sennosides/Docusate Sodium [Senokot-S] 1 - 2 tab PO BID #0 tab 03/22/16 [Last Taken Unknown] Construction And Maintenance Inspector Antibiotics: none Discharge Medications: Refer to the Discharge Home Medication list for PRN reason. PICC Care - Routine: N/A - Orders Services needed: Registered Nurse, Certified Inspector Final Assembly Electrical, Master Senior Java [id number] Developer , Physical Therapy, Occupational Therapy Oxygen: to keep O2 sat greater than 90% Diet Recommendation: no restrictions on diet Diet Texture: Regular Texture Diet Tube feeding: n/a Hannon: No Alex Stockings Discontinue Date: continue unless walking 100-200 yrds 3 x daily Wound Care Instructions: steritrips on for 14-17 days-ok if fall off on own - Follow Up Care Current Providers and Referrals: Ketan Clark MD [Primary Care Provider] - Gurmeet Uriostegui MD [Medical Doctor] - (follow up in 2-3 weeks)
[2016-03-22 16:40] VITALS: PULSE 67; RESP 18; O2SAT 96
== END 2016-03-22 17:11 | DRG 460 ==
LOC: F3N 09:27
PROVIDERS: ADMIT Neurological Surgery; ATTEND Neurological Surgery
PROC: 3E0V0GB Introduction of Recombinant Bone Morphogenetic Protein into Bones, Open Approach (ICD-10-PCS; principal; 2016-03-18 11:15)
PROC: 00NY0ZZ Release Lumbar Spinal Cord, Open Approach (ICD-10-PCS; principal; 2016-03-18 11:15)
PROC: 0SG1071 Fusion of 2 or more Lumbar Vertebral Joints with Autologous Tissue Substitute, Posterior Approach, Posterior Column, Open Approach (ICD-10-PCS; principal; 2016-03-18 11:15)
PROC: 4A10X4G Monitoring of Central Nervous Electrical Activity, Intraoperative, External Approach (ICD-10-PCS; principal; 2016-03-18 11:15)
PROC: 8E0WXBZ Computer Assisted Procedure of Trunk Region (ICD-10-PCS; principal; 2016-03-18 11:15)
PROC: 0SG10AJ Fusion of 2 or more Lumbar Vertebral Joints with Interbody Fusion Device, Posterior Approach, Anterior Column, Open Approach (ICD-10-PCS; principal; 2016-03-18 11:15)
PROC: 01NB0ZZ Release Lumbar Nerve, Open Approach (ICD-10-PCS; principal; 2016-03-18 11:15)
PROC: 30233N1 Transfusion of Nonautologous Red Blood Cells into Peripheral Vein, Percutaneous Approach (ICD-10-PCS; 2016-03-19)
DX: M48.06 Spinal stenosis, lumbar region (principal); M43.16 Spondylolisthesis, lumbar region; D62 Acute posthemorrhagic anemia; D50.8 Other iron deficiency anemias; I48.0 Paroxysmal atrial fibrillation; I10 Essential (primary) hypertension; Z85.09 Personal history of malignant neoplasm of other digestive organs; Z90.410 Acquired total absence of pancreas
CPT/HCPCS: 82607-90; 97116-GP; 97161-GP; 97165-GO; 97530-GO; 97530-GP; 97535-GO; C1713; C1762; G8978-GP-CJ; G8979-GP-CI; G8987-GO-CK; G8988-GO-CI; J0690; J1100; J1650; J2001; J2250; J2274; J2405; J2704; J2916; J3010; J7060; P9016